=== PATIENT | female | born 1975 | race Caucasian/White ===

== ENCOUNTER 2024-03-09 15:00 | Inpatient (IN) | payer OTHER ==
[~2024-03-09] VITALS: Ht 167.6 cm; Wt 84.4 kg
[2024-03-09 15:34] VITALS: BP 144/92; PULSE 124; RESP 18; TEMP 97.8; O2SAT 99
[2024-03-09] MEDS: NACL 0.9% 1,000 ML IV ONE (16:45)
[2024-03-09 16:52] LABS: BASOPHILS # (AUTO) 0.1 K/uL (0.00-0.22); BASOPHILS % (AUTO) 0.5 % (0.0-2.0); EOSINOPHILS % (AUTO) 0.3 % (0.0-4.0); HEMATOCRIT 36.3 % (36-48); HEMOGLOBIN 12.1 g/dL (12.0-16.0); LYMPHOCYTES # (AUTO) 2.2 K/uL (2.5-16.5); LYMPHOCYTES % (AUTO) 21.2 % (20.5-51.1); MEAN CORPUSCULAR HEMOGLOBIN 27 pg (27-31); MEAN CORPUSCULAR HGB CONC 33 g/dL (33-37); MEAN CORPUSCULAR VOLUME 79.6 fL (80-94); NEUTROPHILS # (AUTO) 7.1 K/uL (1.8-7.7); PLATELET COUNT (AUTO) 387 K/uL (140-450); RED BLOOD CELL COUNT(AUTO) 4.57 MIL/uL (4.20-5.40); RED CELL DISTRIBUTION WIDTH 12.2 % (11.6-13.7); WHITE BLOOD COUNT (AUTO) 10.5 K/uL (4.8-10.8)
[2024-03-09 17:14] LABS: INR 1.09 (0.8-1.2); PARTIAL THROMBOPLASTIN TIME 29.9 secs (22-35.6); PROTHROMBIN TIME 11.4 secs (10.8-13.4)
[2024-03-09 17:22] LABS: ANION GAP 14.7 (8-16); CALCIUM 9.6 mg/dL (8.5-10.1); CARBON DIOXIDE 24.3 mmol/L (21-32); CREATININE 0.7 mg/dL (0.6-1.3)
[2024-03-09 17:30] LABS: ALANINE AMINOTRANSFERASE 36 U/L (12-78); ALBUMIN 3.4 g/dL (3.4-5.0); ALKALINE PHOSPHATASE 133 U/L (50-136); ASPARTATE AMINOTRANSFERASE 15 U/L (15-37); BILIRUBIN,DIRECT 0.2 mg/dL (0.0-0.3); THYROID STIMULATING HORMONE < 0.01 uIU/mL (0.34-3.74); TOTAL BILIRUBIN 0.6 mg/dL (0.0-1.0); TOTAL PROTEIN, SERUM 7.8 g/dL (6.4-8.2)
[2024-03-09 18:21] LABS: BILIRUBIN,URINE 1+ (NEGATIVE); BLOOD, URINE 3+ (NEGATIVE); COLOR,URINE YELLOW (YELLOW); LEUKOCYTE ESTERASE ,URINE NEGATIVE (NEGATIVE); NITRITE, URINE NEGATIVE (NEGATIVE); PROTEIN,URINE 1+ (NEGATIVE); UGLUCOSE NEGATIVE (NEGATIVE); UROBILINOGEN,URINE 0.2 EU/dL (0.2 - 1)
[2024-03-09 18:23] LABS: APPEARANCE,URINE SLIGHTLY CLOUDY (CLEAR)
[2024-03-09 18:28] LABS: ICTOTEST POSITIVE (NEGATIVE)
[2024-03-09 18:29] LABS: BACTERIA,URINE 1+ /HPF (None Seen); MUCUS,URINE None Seen /LPF (None Seen); SQUAMOUS EPITHELIAL CELL,UR 0-3 (FEW) /LPF (0-3 (FEW))
[2024-03-09 18:30] LABS: WBC,URINE 0-5 /HPF (0-5)
[2024-03-09] MEDS: PROPRANOLOL 1 MG/ML VIAL IVP ONE (19:15)
[2024-03-09] MEDS ORDERED: MAGNESIUM OXIDE 400 MG TAB PO PRN (19:25)
[2024-03-09] MEDS ORDERED: POTASSIUM CHLORIDE 10 MEQ TABER PO PRN (19:25)
[2024-03-09] MEDS ORDERED: MORPHINE SULFATE 2 MG/ML SYR IVP PRN (19:25)
[2024-03-09] MEDS ORDERED: KCL 20 MEQ IN 100 mL PREMIX 200 ML IV PRN (19:25)
[2024-03-09] MEDS ORDERED: MAG SULF 2000 MG/WATER PREMIX 50 ML IV PRN (19:25)
[2024-03-09] MEDS ORDERED: ACETAMINOPHEN 325 MG TAB PO PRN (19:25)
[2024-03-09] MEDS ORDERED: HYDROcodone/APAP 5/325 MG 1 TAB TAB PO PRN (19:25)
[2024-03-09 19:48] VITALS: O2SAT 95
[2024-03-09] MEDS: NACL 0.9% 1,000 ML IV SCH (20:02)
[2024-03-09 22:05] VITALS: PULSE 105; RESP 18; O2SAT 97
[2024-03-09 22:08] VITALS: BP 113/57; PULSE 108; RESP 18; TEMP 98.1; O2SAT 97
[2024-03-09 22:11] VITALS: PULSE 128
[2024-03-09 23:54] VITALS: PULSE 105
[2024-03-10] VITALS (8 sets, daily range): BP systolic 103–115; BP diastolic 57–69; PULSE 104–113; RESP 18; TEMP 97.2–98.2; O2SAT 97–99
[2024-03-10] MEDS: ONDANSETRON 4 MG/2 ML VIAL IVP PRN (03:42)
[2024-03-10 05:29] LABS: BASOPHILS % (AUTO) 0.4 % (0.0-2.0); EOSINOPHILS # (AUTO) 0.1 K/uL (0-0.4); EOSINOPHILS % (AUTO) 0.7 % (0.0-4.0); HEMOGLOBIN 11.2 g/dL (12.0-16.0); LYMPHOCYTES # (AUTO) 1.7 K/uL (2.5-16.5); LYMPHOCYTES % (AUTO) 14.8 % (20.5-51.1); MEAN CORPUSCULAR HEMOGLOBIN 26 pg (27-31); MEAN CORPUSCULAR HGB CONC 33 g/dL (33-37); MEAN CORPUSCULAR VOLUME 79.1 fL (80-94); NEUTROPHILS # (AUTO) 8.5 K/uL (1.8-7.7); NEUTROPHILS % (AUTO) 75.1 % (42.2-75.2); PLATELET COUNT (AUTO) 351 K/uL (140-450); RED CELL DISTRIBUTION WIDTH 12.3 % (11.6-13.7); WHITE BLOOD COUNT (AUTO) 11.3 K/uL (4.8-10.8)
[2024-03-10 05:50] LABS: ALBUMIN 2.8 g/dL (3.4-5.0); ANION GAP 11.1 (8-16); CALCIUM 9.1 mg/dL (8.5-10.1); CARBON DIOXIDE 26.4 mmol/L (21-32); CREATININE 0.6 mg/dL (0.6-1.3); MAGNESIUM 1.9 mg/dL (1.8-2.4); POTASSIUM 4.5 mmol/L (3.5-5.1); TOTAL BILIRUBIN 0.5 mg/dL (0.0-1.0); TOTAL PROTEIN, SERUM 6.7 g/dL (6.4-8.2)
[2024-03-10] MEDS ORDERED: PROP20TA29 PO (12:23)
[2024-03-10] MEDS ORDERED: TAP5 PO (12:23)
[2024-03-10] MEDS ORDERED: methIMAzole 5 MG TAB PO SCH (12:30)
[2024-03-10] MEDS ORDERED: PROPRANOLOL 20 MG TAB PO SCH (13:00)
== END 2024-03-10 16:37 | disposition home or self-care (01) | DRG 427 ==
LOC: MED 15:00 → MTU 19:33
PROVIDERS: ADMIT Hospitalist; ATTEND Hospitalist
DX: E05.90 Thyrotoxicosis, unspecified without thyrotoxic crisis or storm (principal); F41.9 Anxiety disorder, unspecified; R00.0 Tachycardia, unspecified; Z80.3 Family history of malignant neoplasm of breast
CPT/HCPCS: 36415; 70450; 71045; 76536; 80048; 80053; 80076; 81001; 83735; 84439; 84443; 84484; 85025; 85610; 85730; 87081; 93005; 96361; 96374; 99285; J1800; J2405